=== PATIENT | male | born 1955 | race Caucasian/White ===

== ENCOUNTER 2019-05-09 15:55 | Observation (INO) | payer OTHER ==
[2019-05-09 16:23] LABS: ADD MAN DIFF? NO
[2019-05-09 16:26] LABS: WHITE BLOOD COUNT 6.3 10^3/ul (4.8-10.8)
[2019-05-09 16:26] LABS: BASOPHILS % 0.5 % (0.0-2.0); HEMOGLOBIN 11.2 g/dl (14.0-18.0); LYMPHOCYTES # 1.3 10^3/ul (0.8-2.9); MEAN CORPUSCULAR HEMOGLOBIN 30.4 pg (29.0-33.0); MEAN CORPUSCULAR HGB CONC 33.9 g/dl (32.0-37.0); MEAN CORPUSCULAR VOLUME 89.4 fl (82.0-101.0); MEAN PLATELET VOLUME 9.5 fl (7.4-10.4); MONOCYTE # 0.5 10^3/ul (0.3-0.9); MONOCYTES % 7.5 % (0.0-11.0); NEUTROPHIL # 4.5 10^3/ul (1.6-7.5); NEUTROPHILS % 70.7 % (39.0-77.0); PLATELET COUNT 230 10^3/UL (140-415); RED BLOOD COUNT 3.69 10^6/ul (4.70-6.10)
[2019-05-09 16:48] LABS: ANION GAP 9 (5-13); BLOOD UREA NITROGEN 10 mg/dl (7-20); CALCIUM 9.2 mg/dl (8.4-10.2); CARBON DIOXIDE 25 mmol/L (21-31); CHLORIDE 96 mmol/L (97-110); CREATININE 0.75 mg/dl (0.61-1.24); Estimated GFR > 60 mL/min (>60); GLUCOSE 247 mg/dl (70-220); POTASSIUM 3.9 mmol/L (3.5-5.1); SODIUM 130 mmol/L (135-144)
[2019-05-09 16:59] LABS: TROPONIN-I < 0.012 ng/ml (0.000-0.120)
[2019-05-09] MEDS: ASPIRIN 81 MG TAB PO (17:45)
[2019-05-09] MEDS: LORAZEPAM 1 MG TAB PO (17:47)
[2019-05-09] MEDS ORDERED: ALBUTEROL HFA 8 GM INHALER INH (18:00)
[2019-05-09] MEDS ORDERED: ACETAMINOPHEN 325 MG TAB PO (18:00)
[2019-05-09] MEDS ORDERED: ONDANSETRON 4 MG INJ IV (18:00)
[2019-05-09] MEDS ORDERED: METOCLOPRAMIDE 5 MG TAB PO (18:00)
[2019-05-09] MEDS ORDERED: DEXTROSE 50% 50 ML SYRINGE IV ×2 (18:30)
[2019-05-09] MEDS ORDERED: GLUCOSE GEL 15 GRAM TUBE BUCCAL (18:30)
[2019-05-09] MEDS ORDERED: GLUCOSE GEL 15 GRAM TUBE PO ×2 (18:30)
[2019-05-09] MEDS ORDERED: NACL 0.9% 3 ML SYG IV (18:30)
[2019-05-09] MEDS ORDERED: ONDANSETRON 4 MG TAB PO (18:30)
[2019-05-09] MEDS ORDERED: DOCUSATE SODIUM 100 MG CAP PO (18:30)
[2019-05-09] MEDS ORDERED: GLUCAGON 1 MG INJ IM (18:30)
[2019-05-09] MEDS: ACCU-CHEK XX (21:00)
[2019-05-09] MEDS: [UNRECOGNIZED DRUG - OTHER] XX (21:30)
[2019-05-09] MEDS: FAMOTIDINE 20 MG TAB PO (22:17)
[2019-05-09] MEDS: ATORVASTATIN 40 MG TAB PO (22:18)
[2019-05-09] MEDS: GABAPENTIN 300 MG CAP PO (22:18)
[2019-05-09] MEDS: MIRTAZAPINE 15 MG TAB PO (22:18)
[2019-05-09] MEDS: FISH OIL 1,000 MG CAP PO (22:18)
[2019-05-09] MEDS: METOPROLOL (XL) 50 MG TAB PO (22:32)
[2019-05-09] MEDS: ENOXAPARIN 40 MG/0.4 ML SYG SC (22:37)
[2019-05-09 23:01] LABS: CREATINE KINASE 102 IU/L (23-200)
[2019-05-09 23:14] LABS: CK INDEX 1.7; CK-MB 1.75 ng/ml (0.0-2.4); TROPONIN-I < 0.012 ng/ml (0.000-0.120)
[2019-05-09] MEDS: CREON (12k-38k-60k) 1 CAP PO (23:24)
[2019-05-09] MEDS: LORAZEPAM 0.5 MG TAB PO (23:27)
[2019-05-09] MEDS: INSULIN GLARGINE [LANTus] (100 UNITS/ML) SYG SC (23:46)
[2019-05-10 05:05] LABS: ADD MAN DIFF? NO
[2019-05-10 05:07] LABS: WHITE BLOOD COUNT 5.2 10^3/ul (4.8-10.8)
[2019-05-10 05:07] LABS: BASOPHIL # 0.1 10^3/ul (0.0-0.1); EOSINOPHILS % 0.4 % (0.0-7.0); HEMATOCRIT 36.7 % (42.0-52.0); HEMOGLOBIN 12.4 g/dl (14.0-18.0); LYMPHOCYTES # 2.2 10^3/ul (0.8-2.9); LYMPHOCYTES % 41.6 % (15.0-51.0); MEAN CORPUSCULAR HEMOGLOBIN 30.2 pg (29.0-33.0); MEAN CORPUSCULAR HGB CONC 33.8 g/dl (32.0-37.0); MEAN CORPUSCULAR VOLUME 89.5 fl (82.0-101.0); MEAN PLATELET VOLUME 9.9 fl (7.4-10.4); MONOCYTE # 0.5 10^3/ul (0.3-0.9); MONOCYTES % 9.4 % (0.0-11.0); NEUTROPHIL # 2.5 10^3/ul (1.6-7.5); NEUTROPHILS % 47.4 % (39.0-77.0); PLATELET COUNT 265 10^3/UL (140-415)
[2019-05-10 05:28] LABS: ANION GAP 9 (5-13); BLOOD UREA NITROGEN 9 mg/dl (7-20); CARBON DIOXIDE 27 mmol/L (21-31); CHLORIDE 106 mmol/L (97-110); CREATININE 0.72 mg/dl (0.61-1.24); Estimated GFR > 60 mL/min (>60); GLUCOSE 116 mg/dl (70-220); POTASSIUM 4.1 mmol/L (3.5-5.1); SODIUM 142 mmol/L (135-144)
[2019-05-10 05:33] LABS: CREATINE KINASE 86 IU/L (23-200)
[2019-05-10 05:40] LABS: HEMOGLOBIN A1C 7.4 % (0-5.9)
[2019-05-10 05:45] LABS: CK INDEX 1.6; CK-MB 1.37 ng/ml (0.0-2.4); TROPONIN-I < 0.012 ng/ml (0.000-0.120)
[2019-05-10] MEDS ORDERED: INSULIN GLARGINE [LANTus] (100 UNITS/ML) SYG SC ×2 (07:52→21:00)
[2019-05-10] MEDS: ACCU-CHEK XX ×2 (07:56→11:20)
[2019-05-10] MEDS: FENOFIBRATE 145 MG TAB PO (08:09)
[2019-05-10] MEDS: CREON (12k-38k-60k) 1 CAP PO ×2 (08:09→11:50)
[2019-05-10] MEDS: glipiZIDE (XL) 2.5 MG TAB PO (08:09)
[2019-05-10] MEDS: DUTASTERIDE 0.5 MG CAP PO ×2 (08:10→08:30)
[2019-05-10] MEDS: TAMSULOSIN (SR) 0.4 MG CAP PO (08:10)
[2019-05-10] MEDS: ASPIRIN (EC) 81 MG TAB PO (08:10)
[2019-05-10] MEDS: FISH OIL 1,000 MG CAP PO (08:10)
[2019-05-10] MEDS: GABAPENTIN 300 MG CAP PO (08:10)
[2019-05-10] MEDS: FAMOTIDINE 20 MG TAB PO (08:10)
[2019-05-10] MEDS: LINAGLIPTIN 5 MG TABLET PO (08:11)
[2019-05-10] MEDS: EMPAGLIFLOZIN 10 MG TABLET PO (08:11)
[2019-05-10] MEDS: METOPROLOL (XL) 50 MG TAB PO (08:15)
[2019-05-10] MEDS: NIFEdipine (XL) 30 MG TAB PO (08:16)
[2019-05-10] MEDS: HYDROCHLOROTHIAZIDE 12.5 MG CAP PO (08:16)
[2019-05-10] MEDS: BENAZEPRIL 10 MG TAB PO (08:16)
[2019-05-10] MEDS: ENOXAPARIN 40 MG/0.4 ML SYG SC (08:27)
[2019-05-10] MEDS ORDERED: glipiZIDE (XL) 5 MG TAB PO (09:00)
[2019-05-10] MEDS: ACETAMINOPHEN 325 MG TAB PO (12:39)
[2019-05-10] MEDS: LORAZEPAM 0.5 MG TAB PO (12:54)
[2019-05-10] MEDS ORDERED: LORAZEPAM 0.5 MG TAB PO (18:00)
== END 2019-05-10 13:22 | disposition home or self-care (01) ==
LOC: E/R 15:55 → TEL 18:01
DX: R07.89 Other chest pain (principal); I10 Essential (primary) hypertension; E78.5 Hyperlipidemia, unspecified; F20.9 Schizophrenia, unspecified; F41.9 Anxiety disorder, unspecified; F17.210 Nicotine dependence, cigarettes, uncomplicated; N40.0 Benign prostatic hyperplasia without lower urinary tract symptoms; F32.9 Major depressive disorder, single episode, unspecified; Z79.82 Long term (current) use of aspirin; Z79.84 Long term (current) use of oral hypoglycemic drugs
CPT/HCPCS: 36415; 71045; 80048; 82550; 82553; 82962; 83036; 84484; 85025; 93005; 93306; 99285-25; G0378

== ENCOUNTER 2019-05-16 01:19 | Emergency (ER) | payer OTHER ==
[2019-05-16 02:21] LABS: ADD MAN DIFF? NO
[2019-05-16 02:22] LABS: BASOPHILS % 0.5 % (0.0-2.0); EOSINOPHILS % 0.2 % (0.0-7.0); HEMATOCRIT 34.4 % (42.0-52.0); HEMOGLOBIN 11.8 g/dl (14.0-18.0); LYMPHOCYTES # 1.8 10^3/ul (0.8-2.9); LYMPHOCYTES % 30.1 % (15.0-51.0); MEAN CORPUSCULAR HEMOGLOBIN 30.3 pg (29.0-33.0); MEAN CORPUSCULAR HGB CONC 34.3 g/dl (32.0-37.0); MEAN CORPUSCULAR VOLUME 88.2 fl (82.0-101.0); MEAN PLATELET VOLUME 9.7 fl (7.4-10.4); MONOCYTE # 0.7 10^3/ul (0.3-0.9); MONOCYTES % 11.8 % (0.0-11.0); NEUTROPHIL # 3.5 10^3/ul (1.6-7.5); NEUTROPHILS % 57.2 % (39.0-77.0); PLATELET COUNT 203 10^3/UL (140-415)
[2019-05-16 02:47] LABS: ALANINE AMINOTRANSFERASE 28 IU/L (13-69); ALBUMIN 4.1 g/dl (3.3-4.9); ALBUMIN/GLOBULIN RATIO 1.46; ALKALINE PHOSPHATASE 26 IU/L (42-121); ANION GAP 10 (5-13); ASPARTATE AMINO TRANSFERASE 25 IU/L (15-46); BILIRUBIN,INDIRECT 0.3 mg/dl (0-1.1); BILIRUBIN,TOTAL 0.3 mg/dl (0.2-1.3); BLOOD UREA NITROGEN 11 mg/dl (7-20); CALCIUM 9.4 mg/dl (8.4-10.2); CARBON DIOXIDE 29 mmol/L (21-31); CHLORIDE 95 mmol/L (97-110); CREATININE 0.79 mg/dl (0.61-1.24); Estimated GFR > 60 mL/min (>60); GLUCOSE 187 mg/dl (70-220); LIPASE 70 U/L (23-300); POTASSIUM 3.9 mmol/L (3.5-5.1); SODIUM 134 mmol/L (135-144); TOTAL PROTEIN 6.9 g/dl (6.1-8.1)
[2019-05-16 02:58] LABS: TROPONIN-I < 0.012 ng/ml (0.000-0.120)
[2019-05-16] MEDS: LORAZEPAM 1 MG TAB PO (04:21)
== END 2019-05-16 04:34 | disposition home or self-care (01) ==
LOC: E/R 01:19
DX: F41.1 Generalized anxiety disorder (principal); R00.2 Palpitations; E11.9 Type 2 diabetes mellitus without complications; I10 Essential (primary) hypertension; Z79.4 Long term (current) use of insulin; Z87.891 Personal history of nicotine dependence; Z79.82 Long term (current) use of aspirin
CPT/HCPCS: 36415; 80053; 83690; 84484; 85025; 93005; 99284-25

== ENCOUNTER 2019-05-20 15:48 | Emergency (ER) | payer OTHER ==
[2019-05-20] MEDS: SOD CHLORIDE 0.9% 1,000 ML IV (16:35)
[2019-05-20] MEDS: ONDANSETRON (ODT) 4 MG TAB ODT (16:35)
[2019-05-20 17:35] LABS: ADD MAN DIFF? NO
[2019-05-20 17:37] LABS: BASOPHILS % 0.5 % (0.0-2.0); HEMATOCRIT 33.3 % (42.0-52.0); HEMOGLOBIN 11.4 g/dl (14.0-18.0); LYMPHOCYTES # 1.2 10^3/ul (0.8-2.9); LYMPHOCYTES % 18.7 % (15.0-51.0); MEAN CORPUSCULAR HEMOGLOBIN 30.6 pg (29.0-33.0); MEAN CORPUSCULAR HGB CONC 34.2 g/dl (32.0-37.0); MEAN CORPUSCULAR VOLUME 89.5 fl (82.0-101.0); MONOCYTE # 0.6 10^3/ul (0.3-0.9); MONOCYTES % 9.3 % (0.0-11.0); NEUTROPHIL # 4.5 10^3/ul (1.6-7.5); NEUTROPHILS % 71.2 % (39.0-77.0); PLATELET COUNT 215 10^3/UL (140-415); RED BLOOD COUNT 3.72 10^6/ul (4.70-6.10); RED CELL DISTRIBUTION WIDTH 12.1 % (11.5-14.5)
[2019-05-20 17:37] LABS: WHITE BLOOD COUNT 6.3 10^3/ul (4.8-10.8)
[2019-05-20 17:47] LABS: ANION GAP 9 (5-13); BLOOD UREA NITROGEN 10 mg/dl (7-20); CALCIUM 8.8 mg/dl (8.4-10.2); CARBON DIOXIDE 25 mmol/L (21-31); CHLORIDE 96 mmol/L (97-110); CREATININE 0.85 mg/dl (0.61-1.24); Estimated GFR > 60 mL/min (>60); GLUCOSE 263 mg/dl (70-220); POTASSIUM 4.6 mmol/L (3.5-5.1); SODIUM 130 mmol/L (135-144)
[2019-05-20 17:58] LABS: TROPONIN-I < 0.012 ng/ml (0.000-0.120)
== END 2019-05-20 19:39 | disposition home or self-care (01) ==
LOC: E/R 15:48
DX: R53.1 Weakness (principal); I10 Essential (primary) hypertension; F17.210 Nicotine dependence, cigarettes, uncomplicated; E11.9 Type 2 diabetes mellitus without complications; Z79.82 Long term (current) use of aspirin; Z79.84 Long term (current) use of oral hypoglycemic drugs
CPT/HCPCS: 36415; 71045; 80048; 84484; 85025; 93005; 99285-25